=== PATIENT | male | born 1945 | race Caucasian/White ===

== ENCOUNTER 2024-06-24 08:50 | Day surgery (SDC) | payer MEDICARE, OTHER ==
[~2024-06-24] VITALS: Ht 152.4 cm; Wt 60.2 kg
[2024-06-24] VITALS (30 sets, daily range): BP systolic 120–140; BP diastolic 60–72; PULSE 53–92; TEMP 94.8–97.8; O2SAT 97–100
[2024-06-24] MEDS ORDERED: GLUCOPHAGE500 MG/TAB PO (09:45)
[2024-06-24] MEDS ORDERED: AMARYL1 MG PO (09:45)
[2024-06-24] MEDS ORDERED: LIPITOR 40MG TA40 MG PO (09:47)
[2024-06-24] MEDS ORDERED: ELIQUIS 2.5 PO (09:48)
[2024-06-24] MEDS ORDERED: MULTAQ400 MG (09:49)
[2024-06-24] MEDS ORDERED: PLAVIX 75MG TAB75 MG (09:50)
--- NOTE | 2024-06-24 10:20 | NUR ---
moving worker met with pt and his son, Sage [phone] to discuss discharge planning. Pt reports to live alone in [place] and sees Dr. Festus Bridges for PCP needs. He utilizes [facility] for medications and has no difficulties affording them. Pt confirmed to have Medicare A/B insurance. He reports to be independent with ADLS and son states his and himself assist during the day with any needs. He has a walking stick for DME. Son confirms pt does have a DPOA-HC appointing him and he will retrieve this from home. No further concerns at this time discussed. RN reports pt is a solatol initiation. Discharge Plan: home
[2024-06-24] MEDS ORDERED: ASPIRIN 81M81 MG/TA2 PO (10:51)
[2024-06-24] MEDS ORDERED: CINNAMON500 MG PO (10:52)
[2024-06-24] MEDS ORDERED: TURMERIC500 MG PO (10:52)
[2024-06-24] MEDS ORDERED: PHARMASSURE ZIN50 MG PO (10:53)
[2024-06-24] MEDS ORDERED: MASON NATURAL2000 IU PO (10:53)
[2024-06-24] MEDS ORDERED: MULTAQ400 MG PO (10:54)
[2024-06-24 11:05] LABS: CALCIUM 9.8 mg/dL (8.4-10.2); CREATININE, serum 1.52 mg/dL (0.72-1.25); MAGNESIUM 1.5 mg/dL (1.6-2.6); POTASSIUM 4.6 mEq/L (3.5-4.5)
[2024-06-24] MEDS ORDERED: SOTALOL IV ONE (12:30)
[2024-06-24] MEDS ORDERED: NS IV ONE (12:30)
--- NOTE | 2024-06-24 12:49 | NUR ---
INITIATED SOTOLOL AT 1230 POTASSIUM: 4.6 MA.5 QTc: 430 BP: 127/69 P: 51 O2: 98% RESP: 14 TEMP: 98.1
--- NOTE | 2024-06-24 19:35 | NUR ---
Received report from FARZAD Daniels. Patient resting quietly in bed reading. Vitals within normal limits; he is on room air at this time, tolerating well. No IVF or medications infusing at this time. Denies pain or discomfort. Patient assisted to toilet with walker; gait is wobbly and very unsteady.
[2024-06-24] MEDS ORDERED: SOTALOL 120 MG PO SCH (20:15)
[2024-06-24] MEDS ORDERED: Apixaban 2.5 MG TABLET PO SCH (21:00)
[2024-06-25] VITALS (7 sets, daily range): BP systolic 93–128; BP diastolic 55–74; PULSE 46–51; TEMP 97.5–97.9; O2SAT 94–98
--- NOTE | 2024-06-25 03:06 | NUR ---
Patient exhibiting increased confusion. He sleeps soundly between bouts of wakefulness. Patient is fairly easy to redirect. He remembers coming to the hospital yesterday but has difficulty remembering that he is staying overnight.
[2024-06-25 05:46] LABS: CALCIUM 9.5 mg/dL (8.4-10.2); CREATININE, serum 1.04 mg/dL (0.72-1.25); MAGNESIUM 1.5 mg/dL (1.6-2.6); POTASSIUM 4.9 mEq/L (3.5-4.5)
--- NOTE | 2024-06-25 07:00 | NUR ---
Report received from FARZAD Holliday; patient currently resting in bed with no meds or fluids running through his peripheral INT. Patient's vital signs within normal limits this morning, and patient's QTC was within normal limits on the last EKG.
--- NOTE | 2024-06-25 14:06 | NUR ---
SW was informed pt is on PO Sotalol and is a likely discharge today. Discharge Plan: home
[2024-06-25] MEDS ORDERED: ELIQUIS 2.5 PO (15:03)
[2024-06-25] MEDS ORDERED: BETAPACE 120MG120 MG PO (15:47)
--- NOTE | 2024-06-25 16:45 | NUR ---
Patient discharged home today; Dr. Barrera put discharge orders in incorrectly regarding medications that were to be sent to patient's pharmacy. This nurse called Dr. Barrera to see if he could fix it, however, Dr. Barrera was doing a procedure and said that he would do it afterwards. This nurse called Dr. Barrera's clinic approx 20 minutes later and spoke with FARZAD Lantigua, his nurse, who stated that she would call in the prescription to patient's pharmacy so he would be able to get his sotalol picked up. FARZAD Lantigua was also going to call the patient tomorrow to set up a follow-up appointment with Dr. Barrera.
[2024-06-25] MEDS ORDERED: SOTALOL 120 MG PO SCH (19:30)
== END 2024-06-25 16:38 | disposition home or self-care (01) ==
LOC: MEDICAL 08:50 → ICU 08:56 → EDSTATUS 14:59 → MEDICAL 16:14
PROVIDERS: Internal Medicine Interventional Cardiology
DX: I48.0 Paroxysmal atrial fibrillation (principal); R00.1 Bradycardia, unspecified; I10 Essential (primary) hypertension; I49.3 Ventricular premature depolarization; Z95.818 Presence of other cardiac implants and grafts; Z79.899 Other long term (current) drug therapy; Z79.01 Long term (current) use of anticoagulants
CPT/HCPCS: OP; C9482; J7050